=== PATIENT | female | born 1940 | race Caucasian/White ===

== ENCOUNTER 2017-08-19 14:21 | Outpatient (CLI) | payer MEDICARE, OTHER | END 2017-08-19 14:22 | disposition home or self-care (01) | LOC: BICULT 14:21 | PROVIDERS: ATTEND Internal Medicine | DX: I66.02 Occlusion and stenosis of left middle cerebral artery (principal) | CPT/HCPCS: 93880 ==

== ENCOUNTER 2018-03-21 13:00 | Outpatient (CLI) | payer MEDICARE, OTHER ==
--- NOTE | 2018-03-21 15:03 | ULT ---
CAROTID ARTERIAL DOPPLER ULTRASOUND: Date: 03-21-18 Comparison: 08-19-17 History: Occlusion of left MCA. Technique: Multiplanar grayscale sonographic imaging arterial structures of the neck obtained bilater ally with color flow and spectral analysis. FINDINGS: There is prominent calcified plaque involving the distal right CCA and proximal right ICA. Antegrade blood flow and normal arterial waveforms are noted within the carotid and vertebral system on the rig ht. There is essentric plaque within the distal left CCA and there is calcified plaque within the proxima l left ICA. Retrograde blood flow is noted within the vertebral artery on the left. Left carotid and vertebral system appears patent. VESSEL PSV (cm/sec) Right CCA 133 Right ICA 160 Right ECA 90 Left CCA 93 Left ICA 265 Left ECA 264 ICA/CCA ratio is 1.4 on the right and 2.9 on the left. IMPRESSION: 1. Abnormally elevated velocities are noted within the internal carotid arteries bilaterally, left gr eater than right, suggesting hemodynamically significant stenosis, up to 69% on the right and greater than 70% on the left. CT angiogram and/or MR angiogram could better assess these findings. In additi on, retrograde blood flow is seen within the left vertebral artery suggesting subclavian steal. This could also be better assessed via CT angiogram or MR angiogram. Code T POS: [facility]
--- NOTE | 2018-03-21 15:06 | RAD ---
FRONTAL AND LATERAL IMAGING CHEST: Date: 03-21-18 Comparison: None. 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 FINDINGS: There is atherosclerotic calcification of the aortic arch. The aortic arch is prominent/tortuous and there may be aneurysm dilatation of the iliac arch on the lateral examination. No pneumothorax, pleural fluid, focal consolidation or alveolar edema. IMPRESSION: Contour abnormality involving the aortic arch on the lateral view may signify an underlying aneurysm of the aortic arch. Recommend further evaluation via CT angiogram. Code T POS: [facility]
== END 2018-03-21 13:01 | disposition home or self-care (01) ==
LOC: SCSULT 13:00
PROVIDERS: ATTEND Internal Medicine
DX: I66.02 Occlusion and stenosis of left middle cerebral artery (principal); I65.29 Occlusion and stenosis of unspecified carotid artery; I77.9 Disorder of arteries and arterioles, unspecified
CPT/HCPCS: 71046; 93880

== ENCOUNTER 2018-03-29 11:56 | Outpatient (CLI) | payer MEDICARE, OTHER ==
[2018-03-29 13:05] LABS: Bilirubin Negative (Negative); Blood, Urine Negative (Negative); Clarity Clear (Clear); Glucose, Urine (Dipstick) Negative (Negative); Leukocyte Negative (Negative); Nitrite Negative (Negative); Protein, Urine (Dipstick) Negative (Neg-Trace); Urobilinogen 0.2 mg/dL (0.2-1.0)
[2018-03-29 13:37] LABS: Estimated GFR-MDRD - POC Greater than 90
[2018-03-29 14:00] LABS: #Basophils 0.1 thou/uL (0.0-0.2); #Eosinphils 0.2 thou/uL (0.0-0.7); #Lymphocytes 2.3 thou/uL (1.20-3.40); #Monocytes 0.8 thou/uL (0.11-0.59); #Neutrophils 4.5 thou/uL (1.40-6.50); %Basophils 1.5 % (0.0-1.0); %Eosinophils 2.4 % (0.0-10.0); %Neutrophils 57.1 % (42.0-75.0); Elliptocytes SLIGHT = 2-5 cells (100X) (0-1/hpf); Hemoglobin 6.1 g/dL (12.0-16.0); Hypochromia MODERATE=16-30 cells (100X) (0-5/hpf); MDiff Complete? YES; Mean Corpuscular HGB CONC 28.9 g/dL (32.0-36.0); Mean Corpuscular Hemoglobin 18.2 pg (27.0-31.0); Mean Corpuscular Volume 62.9 fL (78.0-98.0); Mean Platelet Volume 6.4 fL (7.4-10.4); Microcytosis SLIGHT = 6-15 cells (100X) (0-5/hpf); Platelet Count 560 thou/uL (130-400); Platelet Morphology Comment Appears Increased; RBC Distribution Width 16.4 % (11.5-14.5); Red Blood Cell (RBC) Count 3.36 mill/uL (4.20-5.40); Reflex for Review?? YES; White Blood Cell (WBC) Count 7.8 thou/uL (4.8-10.8)
[2018-03-29 14:25] LABS: ALT (SGPT) 8 U/L (8-55); AST (SGOT) 12 U/L (5-34); Albumin 4.4 g/dL (3.4-4.8); Alkaline Phosphatase 88 U/L (40-150); Anion Gap 16 mmol/L (10-20); BUN (Urea Nitrogen) 10 mg/dL (9.8-20.1); Bilirubin, Total 0.5 mg/dL (0.2-1.2); Calc. Creatinine Clearance 0 mL/min (70-130); Carbon Dioxide 27 mmol/L (23-31); Cardiac Risk 2.5 (Less than 4.5); Chloride 97 mmol/L (98-107); Cholesterol 133 mg/dl (< 200 Desired); Estimated GFR-MDRD 80; Globulin 3.5 g/dL (2.4-3.5); Glucose 105 mg/dL (83-110); HDL Cholesterol 53 mg/dL (>60 Neg Risk); LDL Cholesterol, Calculated 66 mg/dL; Potassium 3.5 mmol/L (3.5-5.1); Protein, Total 7.9 g/dL (6.0-8.3); Sodium 136 mmol/L (136-145); Triglycerides 69 mg/dL (Less than 150)
--- NOTE | 2018-03-29 15:18 | CT ---
CT ANGIOGRAM NECK WITH CONTRAST: Date: 03/29/18 HISTORY: Abnormal ultrasound. COMPARISON: Ultrasound dated 03/21/18. TECHNIQUE: CT angiogram of the neck was performed after the intravenous administration of contrast. 3D rendering was provided. FINDINGS: There is a small focal outpouching along the posterior margin of the transverse aorta. Transverse aor ta measures up to 3.1 cm. Moderate emphysematous changes lung apices. Exam limited due to motion. There is high grade possibly complete stenosis of left common carotid artery for a length of approximately 1.0 cm. This occurs at the level of C6. Per NASCET criteria, there is no hemodynamically significant stenosis left internal carotid artery. Right common carotid artery is patent. Per NASCET criteria, there is no hemodynamically significant s tenosis of the right internal carotid artery. Both vertebral arteries are patent and are codominant. IMPRESSION: Nondiagnostic exam of the carotid arteries with motion artifact causing the appearance of a near comp lete high grade stensosis left common carotid artery occlusion, axial image 72, sagittal image 53, at the level of C6 for a length of 1.0 cm. Repeat exam without motion recommended. This stenosis is not seen in the neck portion of the chest CTA exam. POS: [facility]
--- NOTE | 2018-03-29 15:19 | CT ---
CT AORTOGRAM CHEST WITH CONTRAST: INDICATIONS: Abnormal ultrasound. COMPARISON: Ultrasound exam of 03/21/2018 showed evidence of bilateral internal carotid artery stenosis and sugge stion of retrograde flow in the left vertebral artery. TECHNIQUE: Multiple axial tomograms obtained through the chest following thoracic aortogram protocol with multip lanar reconstruction and 3D post process. FINDINGS: Atherosclerotic changes are seen involving the thoracic aorta. Mild aneurysmal dilatation of the asc ending aorta with diameter measured at 3.8 cm. There is aneurysmal dilatation of the aortic arch, be st appreciated on sagittal and coronal images with a focal area of dilatation measuring up to 4.2 cm in diameter. There is diffuse fusiform dilatation of the descending thoracic aorta. Diameter is mos t pronounced in the lower descending thoracic aorta, with diameter measured at 4.8 cm. There is marycruz pheral thrombus at this location. There is no evidence of dissection. No significant stenosis at the origin of the innominate artery. Calcified plaque is seen at the origin of the common carotid artery, resulting in moderate stenosis, approaching 50% diameter. Prominent plaque is seen at the origin of the left subclavian, producing high-grade stenosis, which w ould explain the appearance of retrograde flow in the left vertebral noted on ultrasound examination. The left subclavian artery is opacified and appears otherwise patent. The pulmonary arteries are suboptimally opacified; however, there is no evidence or proximal pulmonar y embolus. Prominent calcified lymph node in the left hilum. The lung capps are clear. No infiltrate. Soft tissues show bilateral breast prostheses. There is fluid density surrounding the left breast pr osthesis. This may indicate a confined leak of a saline implant. IMPRESSION: 1. Atherosclerotic changes and aneurysmal dilatation of the thoracic aorta, as described above. Ane urysmal dilatation most pronounced in the lower descending thoracic aorta, as noted above. 2. Prominent calcified plaque with high-grade stenosis at the origin of the left subclavian artery, as described above. POS: [facility]
[2018-03-29 17:22] LABS: Folate (Folic Acid) 10.4 ng/mL (7.0-31.4)
== END 2018-03-29 11:57 | disposition home or self-care (01) ==
LOC: SCSCT 11:56
PROVIDERS: ATTEND Internal Medicine
DX: R93.89 Abnormal findings on diagnostic imaging of other specified body structures (principal); M79.605 Pain in left leg; R20.2 Paresthesia of skin; I10 Essential (primary) hypertension; I77.810 Thoracic aortic ectasia; I70.8 Atherosclerosis of other arteries
CPT/HCPCS: 36415; 70498; 71275; 80053; 80061; 81003; 82607; 82746; 84443; 85025; 85060

== ENCOUNTER 2018-11-02 09:02 | Outpatient (CLI) | payer MEDICARE, OTHER ==
--- NOTE | 2018-11-02 10:21 | BD ---
DEXA BONE DENSITY STUDY: Date: 11/02/18 HISTORY: Age-related osteoporosis without current pathologic fracture. COMPARISON: DEXA scan from 2017. FINDINGS: Lumbar Spine: BMD (g/cm2) L1 0.905 T-Score: -0.8 Z-Score: 1.5 L2 0.966 T-Score: -0.6 Z-Score: 2.0 L3 1.011 T-Score: -0.7 Z-Score: 2.0 L4 1.043 T-Score: -0.2 Z-Score: 2.6 L1-L4 0.981 T-Score: -0.6 Z-Score: 2.0 Change from the comparison exam is +3.2%, statistically significant. Left Femoral Neck: 0.646 T-Score: -1.8 Z-Score: 0.4 Total Femur: 0.760 T-Score: -1.5 Z-Score: 0.5 Change from the comparison exam is +1.6%, not statistically significant. WHO CLASSIFICATION: Osteopenia. 10 YEAR FRACTURE RISK: Major osteoporotic fracture: 13% Hip fracture: 5.2% IMPRESSION: Osteopenia with elevated fracture risk as above. POS: [facility]
== END 2018-11-02 09:03 | disposition home or self-care (01) ==
LOC: BICMAMMO 09:02
PROVIDERS: ATTEND Internal Medicine
DX: M81.0 Age-related osteoporosis without current pathological fracture (principal); M85.89 Other specified disorders of bone density and structure, multiple sites
CPT/HCPCS: 77080

== ENCOUNTER 2019-04-06 10:40 | Outpatient (CLI) | payer MEDICARE, OTHER ==
--- NOTE | 2019-04-06 13:25 | CT ---
CT ANGIOGRAM THORAX WITH IV CONTRAST AND 3-D RECONSTRUCTIONS CLINICAL INDICATION: Ascending thoracic aortic aneurysm. Follow-up evaluation. COMPARISON: 03/29/2018 FINDINGS: Pulmonary arteries: No filling defects are seen in the pulmonary arteries to suggest a pulmonary embo merritt. Aorta: Vascular calcifications are seen in the thoracic aorta. Atherosclerotic irregularity of the th oracic aorta is present. There is evidence of a descending thoracic aortic aneurysm which measures 4.7 cm x 4.6 cm with prior measurement of 4.5 cm x 4.4 cm. The ascending thoracic aorta measures 4 cm in greatest dimension. There is no evidence of an aortic dissection. Dense vascular calcifications are seen in the coronary arteries. There is also atherosclerotic irregularity with atherosclerotic pl aque and calcification seen in the proximal abdominal aorta. There is atherosclerotic irregularity involving the aortic arch with small outpouching along the undersurface of the aortic arch measuring 1.2 cm suggesting small saccular type aneurysm/penetration atheromatous ulceration. There is dense bulky calcified atherosclerotic plaque involving the origin and proximal left subclavian artery with at least moderate narrowing with possibly severe narrowing at the origin of the left subclavian artery. Lungs: There are linear and patchy densities seen in the right lower lobe likely attributable to atel ectasis. Mild atelectasis is also present in the region of the lingula and left lower lobe. No discrete pulmonary nodule, mass, or pleural effusion is identified. There are filling defects seen wi thin the right lower lobe bronchi which may be related to mucous plugging. Minimal peribronchial thickening is also seen in right lower lobe bronchioles. Mediastinum: No enlarged lymph nodes are seen by CT size criteria. Thyroid gland: Grossly normal in appearance. Osseous structures: There is mild bilateral glenohumeral osteoarthropathy. Prominent Schmorl's node i s seen in the superior endplate of the L2 vertebral body with slight height loss involving the L2 vertebral body suggesting a mild compression fracture of indeterminate age. This vertebral body was n ot imaged on prior exam. Chest wall: Bilateral breast prostheses are again noted. There is questionable intracapsular rupture left breast implant. Upper abdomen: There is a large calculus seen in the neck of the gallbladder also seen on prior CT ab domen in 2012. There is a peripherally enhancing lesion in the right hepatic lobe measuring 11 mm also seen on prior study in 2012 and not definitely changed in size. This may represent a small heman gioma or other vascular malformation. Splenic granulomata are visualized. Subcentimeter too small to characterize hypodense lesion is seen at the superior pole right kidney. There is prominent atherosclerotic plaque calcic lesions at the origins of the celiac and superior me senteric arteries with at least mild narrowing at the origin of the superior mesenteric artery. Mild to moderate narrowing is seen involving the origin of the left renal artery.. IMPRESSION: 1. Descending thoracic aortic aneurysm measuring 4.7 cm x 4.6 cm. This has enlarged compared to the p rior study in 2019; the aneurysm on that examination measured 4.5 cm x 4.4 cm. 2. Atherosclerotic irregularity with small outpouching of contrast seen along the inferior aspect of the aortic arch measuring 1.2 cm. This may represent a small saccular aneurysm/penetrating atheromatous-type ulceration. 3. Moderate to severe narrowing involving the origin proximal left subclavian artery due to dense ecc entric vascular calcification. 4. Diffuse vascular calcifications throughout the thoracic aorta and involving the proximal abdominal aorta as well as involving the coronary arteries. 5. Cholelithiasis with large gallbladder calculus in the neck of the gallbladder. 6. Small hemangioma versus other vascular malformation in the right hepatic lobe stable in size and a ppearance compared to a study in 2013.
[2019-04-06] MEDS ORDERED: Iopamidol-370 76% 500 ML 1 ML ONE (14:41)
== END 2019-04-06 10:41 | disposition home or self-care (01) ==
LOC: BICCT 10:40
PROVIDERS: ATTEND Internal Medicine
DX: I71.2 Thoracic aortic aneurysm, without rupture (principal); I25.10 Atherosclerotic heart disease of native coronary artery without angina pectoris; I70.0 Atherosclerosis of aorta; K80.20 Calculus of gallbladder without cholecystitis without obstruction; I77.1 Stricture of artery
CPT/HCPCS: 71275; Q9967

== ENCOUNTER 2019-12-02 13:21 | Emergency (ER) | payer MEDICARE, OTHER ==
[2019-12-02 14:40] LABS: #Basophils 0.1 thou/uL (0.0-0.2); #Eosinphils 0.1 thou/uL (0.0-0.7); #Lymphocytes 0.6 thou/uL (1.20-3.40); #Monocytes 1.1 thou/uL (0.11-0.59); #Neutrophils 12.4 thou/uL (1.40-6.50); %Basophils 0.4 % (0.0-1.0); %Eosinophils 0.5 % (0.0-10.0); %Lymphocytes 4.4 % (21.0-51.0); %Monocytes 7.7 % (0.0-10.0); %Neutrophils 87.1 % (42.0-75.0); Hemoglobin 12.3 g/dL (12.0-16.0); Mean Corpuscular Hemoglobin 31.1 pg (27.0-31.0); Mean Corpuscular Volume 91.5 fL (78.0-98.0); Mean Platelet Volume 6.8 fL (7.4-10.4); Platelet Count 402 thou/uL (130-400); RBC Distribution Width 13.9 % (11.5-14.5); Red Blood Cell (RBC) Count 3.96 mill/uL (4.20-5.40); White Blood Cell (WBC) Count 14.2 thou/uL (4.8-10.8)
[2019-12-02 14:55] LABS: ALT (SGPT) 9 U/L (8-55); AST (SGOT) 17 U/L (5-34); Albumin 3.9 g/dL (3.4-4.8); Alkaline Phosphatase 69 U/L (40-110); Anion Gap 13 mmol/L (10-20); BUN (Urea Nitrogen) 12 mg/dL (9.8-20.1); Bilirubin, Total 0.4 mg/dL (0.2-1.2); Calc. Creatinine Clearance 0 mL/min (70-130); Calcium 9.5 mg/dL (7.8-10.44); Carbon Dioxide 25 mmol/L (23-31); Chloride 101 mmol/L (98-107); Estimated GFR-MDRD 82; Globulin 3.1 g/dL (2.4-3.5); Glucose 92 mg/dL (83-110); Potassium 4.1 mmol/L (3.5-5.1); Sodium 135 mmol/L (136-145)
== END 2019-12-02 15:26 | disposition home or self-care (01) ==
LOC: ERS 13:21
DX: K59.00 Constipation, unspecified (principal); I10 Essential (primary) hypertension; F17.210 Nicotine dependence, cigarettes, uncomplicated; Z79.82 Long term (current) use of aspirin; Z79.899 Other long term (current) drug therapy
CPT/HCPCS: 80053; 85025; 86850; 86900; 86901; 99284

== ENCOUNTER 2019-12-29 13:30 | Outpatient (CLI) | payer MEDICARE, OTHER ==
[2019-12-31 12:11] LABS: SARS-CoV-2 MS2 Positive; SARS-CoV-2 N Gene Negative; SARS-CoV-2 S Gene Negative; SARS-CoV-2 by NAA Not Detected (NotDetected); SARS-CoV-2 orf1ab Negative
== END 2019-12-29 13:31 | disposition home or self-care (01) ==
LOC: LABBT 13:30
PROVIDERS: ATTEND Radiology Radiation Oncology
DX: Z20.828 Contact with and (suspected) exposure to other viral communicable diseases (principal)
CPT/HCPCS: 87635; U0003

== ENCOUNTER 2019-12-30 15:06 | Inpatient (IN) | payer MEDICARE, OTHER ==
[2019-12-30] MEDS ORDERED: Iopamidol-370 76% 500 ML 1 ML ONE (15:47)
[2019-12-30 18:52] LABS: #Eosinphils 0.1 thou/uL (0.0-0.7); #Lymphocytes 0.7 thou/uL (1.20-3.40); #Monocytes 0.8 thou/uL (0.11-0.59); #Neutrophils 4.9 thou/uL (1.40-6.50); %Basophils 0.2 % (0.0-1.0); %Eosinophils 2.2 % (0.0-10.0); %Monocytes 12.6 % (0.0-10.0); Mean Corpuscular HGB CONC 32.8 g/dL (32.0-36.0); Mean Corpuscular Hemoglobin 30.1 pg (27.0-31.0); Mean Corpuscular Volume 91.5 fL (78.0-98.0); Mean Platelet Volume 6.6 fL (7.4-10.4); Platelet Count 395 thou/uL (130-400); RBC Distribution Width 13.1 % (11.5-14.5); Red Blood Cell (RBC) Count 3.99 mill/uL (4.20-5.40); White Blood Cell (WBC) Count 6.6 thou/uL (4.8-10.8)
[2019-12-30 19:15] LABS: ALT (SGPT) 7 U/L (8-55); AST (SGOT) 15 U/L (5-34); Albumin 4.1 g/dL (3.4-4.8); Alkaline Phosphatase 72 U/L (40-110); Anion Gap 19 mmol/L (10-20); BUN (Urea Nitrogen) 13 mg/dL (9.8-20.1); Bilirubin, Total 0.4 mg/dL (0.2-1.2); Calc. Creatinine Clearance 0 mL/min (70-130); Calcium 9.9 mg/dL (7.8-10.44); Carbon Dioxide 22 mmol/L (23-31); Chloride 102 mmol/L (98-107); Estimated GFR-MDRD 77; Globulin 3.3 g/dL (2.4-3.5); Glucose 91 mg/dL (83-110); Potassium 3.5 mmol/L (3.5-5.1); Protein, Total 7.4 g/dL (6.0-8.3); Sodium 139 mmol/L (136-145)
--- NOTE | 2019-12-30 19:48 | CT ---
CT Abdomen Pelvis W Con: 12/30/2019 7:20 PM CLINICAL INFORMATION: Constipation and abdominal COMPARISON: 06/09/2012 TECHNIQUE: Multiple contiguous axial images were obtained and a CT of the abdomen and pelvis with IV contrast. C oronal and sagittal reformats were performed. FINDINGS: Lower Chest: Right basilar atelectasis Abdomen: Liver: Scattered calcified granulomas. There is an area of hyperenhancement in the right lobe of the liver which is stable and may represent a portal venous shunt. Bile Ducts: Mild central intrahepatic biliary dilatation. Gallbladder: Stable large calcified gallstone. Pancreas: within normal limits. Spleen: Scattered calcified granulomas. Adrenals: within normal limits. Kidneys: Hypodensities bilaterally measuring up to 1.2 cm in size likely represent cysts. Calcificati ons in both kidneys are likely vascular calcifications. Pelvis: Reproductive Organs: A 2.2 cm hypodensity in the right pelvis may represent the patient's right ovary or an ovarian cyst. Ureters: There is enlargement of the proximal bilateral ureters Bladder: within normal limits. Peritoneum: No ascites or free air, no fluid collection. Bowel: Normal caliber. Moderate stool is seen in the colon with a slight amount of distention of the rectal vault. Mesentery and Retroperitoneum: No enlarged mesenteric or retroperitoneal lymph nodes. Vessels: Diffuse atherosclerotic calcifications. There is aneurysmal dilatation of the descending tho racic aorta which measures 4.8 cm in greatest dimension. The abdominal aorta is tortuous with aneurysmal dilatation measuring 3.8 cm in greatest dimension. Extensive atherosclerotic calcification s are seen in the proximal aspect of both common iliac arteries. Abdominal Wall: within normal limits. Bones: Degenerative changes in the spine. There is wedge compression deformity of the L1 vertebral sonya dy which is likely chronic. IMPRESSION: 1. Constipation 2. Cholelithiasis 3. Bilateral renal cysts 4. Stable bilateral proximal ureteral enlargement. 5. Aortic aneurysm involving the thoracic and abdominal aorta as above
[2019-12-30 20:42] LABS: Bilirubin Negative (Negative); Blood, Urine Negative (Negative); Clarity Clear (Clear); Glucose, Urine (Dipstick) Normal (Negative); Ketone, Urine Trace mg/dL (Negative); Leukocyte Negative Leu/uL (Negative); Nitrite Negative (Negative); Protein, Urine (Dipstick) 20 mg/dL (Neg-Trace); Specific Gravity, Urine 1.028 (1.002-1.036); Urobilinogen Normal mg/dL (Less than 2)
[2019-12-30] MEDS ORDERED: Nicotine 14 MG PATCH ONE (21:11)
[2019-12-30] MEDS ORDERED: Ondansetron PF 4 MG/2 ML Vial IVP PRN (21:53)
[2019-12-30] MEDS ORDERED: Bisacodyl 10 MG SUPP PR PRN (21:53)
[2019-12-30] MEDS ORDERED: Acetaminophen 325 MG TAB PO PRN (21:53)
--- NOTE | 2019-12-30 22:07 | PDOC.BPN ---
- Brief Progress Note Encounter Date: 12/30/19 [id number] HP
--- NOTE | 2019-12-30 22:48 | HP ---
CHIEF COMPLAINT: Decreased oral intake, dehydration, and constipation. HISTORY OF PRESENT ILLNESS: Ms. Bill is a 79-year-old female with past medical history of throat cancer with recent radiation therapy, peripheral vascular disease with 2 blockages in bilateral legs, subclavian artery stenosis, stroke, aortic aneurysm, among others, presents to the emergency room with constipation, weakness, dehydration. The patient reported that she had not had a bowel movement, but today she tried manual disimpaction on herself and was able to remove stool. She reports that she has not eaten since yesterday due to feeling full. She denies any nausea, vomiting, diarrhea, urinary symptoms, fever, or chills at this time. The patient reports has a history of throat cancer, which is currently receiving radiation therapy, last treatment was on Wednesday. Workup in the emergency room including imaging studies, the patient was found to have cirrhotic, abdominal aortic aneurysm 4.8 cm in greatest diameter. Family is aware of this finding, also the patient was found to have gallstones. The patient has some right upper quadrant tenderness on exam. The patient is being admitted to hospital for further management, started on IV fluids. ED physician consulted GI. The patient is being admitted to the hospital for further management. PAST MEDICAL HISTORY: As mentioned above in history of present illness. PAST SURGICAL HISTORY: 1. Breast cancer surgery, bilateral. 2. Partial hysterectomy. 3. Appendectomy. 4. Tonsillectomy. SOCIAL HISTORY: The patient drinks less than 5 drinks a day, denies drug use, currently uses tobacco, smokes cigarettes. FAMILY HISTORY: Reviewed, noncontributory. ALLERGIES: ALLERGIC TO PENICILLIN. HOME MEDICATIONS: Please see home medication reconciliation form for updated medications. REVIEW OF SYSTEMS: Review of 14 systems negative except what is mentioned in history of present illness. PHYSICAL EXAMINATION: GENERAL: The patient is awake, alert, in mild distress. VITAL SIGNS: Blood pressure 111/61, pulse 73, respiratory rate is 18, temperature 98.5, oxygen saturation is 96% on room air. HEAD AND NECK: Normocephalic. Neck is supple. The patient is having a hoarse voice from recent radiation. CHEST: Fair bilateral air entry. HEART: S1, S2. Regular. ABDOMEN: Soft with right upper quadrant tenderness. Bowel sounds present. NEUROLOGIC: Awake, alert, oriented x3. No focal deficits. PSYCH: Unable to assess. EXTREMITIES: No clubbing or cyanosis. LABORATORY DATA: WBC 6.6, hemoglobin 12, platelets 395. Sodium 139, potassium 3.5, BUN is 13, creatinine is 0.7, AST is 15, ALT is 7. Urinalysis is unremarkable. CT of abdomen and pelvis shows signs of constipation, cholelithiasis, aortic aneurysm involving thoracic and abdominal aorta, which measures 4.8 cm in greatest diameter. ASSESSMENT AND PLAN: 1. Dehydration. 2. Poor oral intake secondary to recent radiation therapy. 3. Gallstones ? symptomatic. 4. Abdominal aortic aneurysm 4.8 cm in greatest diameter. Family is aware of this finding. 5. Throat cancer. We recently treated with radiation. PLAN: 1. Admit. 2. IV fluid hydration. 3. GI was consulted by ED for evaluation regarding CT findings. 4. Reconcile home medications. 5. DVT prophylaxis as appropriate. 6. Expected length of stay, 2 midnights. Job ID: [id number]
[2019-12-30] MEDS: Sodium Chloride 0.9% 1,000 ML IV SCH (23:06)
[2019-12-31 01:34] VITALS: BMI 17.6
[2019-12-31 05:39] LABS: #Eosinphils 0.1 thou/uL (0.0-0.7); #Lymphocytes 0.4 thou/uL (1.20-3.40); #Monocytes 0.8 thou/uL (0.11-0.59); #Neutrophils 4.2 thou/uL (1.40-6.50); %Basophils 0.8 % (0.0-1.0); %Eosinophils 2.5 % (0.0-10.0); %Lymphocytes 7.4 % (21.0-51.0); %Monocytes 14.5 % (0.0-10.0); %Neutrophils 74.7 % (42.0-75.0); Hemoglobin 10.8 g/dL (12.0-16.0); Mean Corpuscular Volume 90.7 fL (78.0-98.0); Mean Platelet Volume 6.6 fL (7.4-10.4); Platelet Count 398 thou/uL (130-400); RBC Distribution Width 12.9 % (11.5-14.5); Red Blood Cell (RBC) Count 3.73 mill/uL (4.20-5.40); White Blood Cell (WBC) Count 5.7 thou/uL (4.8-10.8)
[2019-12-31 06:05] LABS: Carbon Dioxide 23 mmol/L (23-31); Chloride 103 mmol/L (98-107); Sodium 139 mmol/L (136-145)
[2019-12-31 06:06] LABS: ALT (SGPT) Less than 7 U/L (8-55); AST (SGOT) 13 U/L (5-34); Albumin 3.5 g/dL (3.4-4.8); Alkaline Phosphatase 61 U/L (40-110); Anion Gap 16 mmol/L (10-20); BUN (Urea Nitrogen) 8 mg/dL (9.8-20.1); Bilirubin, Total 0.4 mg/dL (0.2-1.2); Calc. Creatinine Clearance 62 mL/min (70-130); Calcium 8.5 mg/dL (7.8-10.44); Estimated GFR-MDRD Greater than 90; Glucose 76 mg/dL (83-110); Protein, Total 6.5 g/dL (6.0-8.3)
[2019-12-31 06:10] LABS: Potassium 2.6 mmol/L (3.5-5.1)
[2019-12-31] MEDS ORDERED: Potassium Chloride 20 MEQ TAB PO SCH (06:30)
[2019-12-31] MEDS ORDERED: Potassium Chloride 40 MEQ in Sodium Chloride 0.9% 250 ML 250 ML IVPB SCH (07:00)
[2019-12-31] MEDS: Sodium Chloride 0.9% 1,000 ML IV SCH (08:52)
[2019-12-31] MEDS: Enoxaparin Sodium 30 MG/0.3 ML SYRINGE SC SCH (08:53)
[2019-12-31] MEDS: Famotidine/PF 20 mg/2ml Vial SLOW IVP SCH ×2 (08:54→20:42)
[2019-12-31 10:28] LABS: SARS-CoV-2 MS2 Positive; SARS-CoV-2 N Gene Negative; SARS-CoV-2 S Gene Negative; SARS-CoV-2 by NAA Not Detected (NotDetected); SARS-CoV-2 orf1ab Negative
[2019-12-31] MEDS: Ketorolac Tromethamine 30 MG/ML VIAL IVP SCH ×2 (11:51→17:20)
[2019-12-31] MEDS ORDERED: Docusate 100 MG CAP PO PRN (17:28)
--- NOTE | 2019-12-31 17:43 | PDOC.HOSPP ---
- Subjective Encounter Date: 12/31/19 Encounter Time: 17:20 Subjective: f/u for dysphagia/dehydration/throat carcinoma currently receiving XRT as outpt. + Constipation but had multiple BM's today. - Objective Vital Signs & Weight: Vital Signs (12 hours) Temp Pulse Resp BP Pulse Ox 12/31/19 15:20 98.1 F 62 18 102/87 97 12/31/19 11:16 98.2 F 64 16 114/72 97 12/31/19 08:00 97 12/31/19 07:18 98 F 66 16 112/75 97 Weight Weight 110 lb 3.698 oz Result Diagrams: 12/31/19 05:22 12/31/19 05:22 Additional Labs: Laboratory Tests 12/30/19 12/30/19 18:39 21:41 Potassium 3.5 SARS-CoV-2 (PCR) Not Detected Radiology Reviewed by me: Yes (CT abd/pel - + constipation, AAA stable, chronic changes) Hospitalist ROS - Medication Medications: Active Medications Generic Name Dose Route Start Last Admin Trade Name Freq PRN Reason Stop Dose Admin Acetaminophen 650 mg 12/30/19 21:53 12/31/19 10:37 Acetaminophen 325 Mg Tab PO 650 mg Q4H PRN Administration Headache/Fever/Mild Pain (1-3) Bisacodyl 10 mg 12/30/19 21:53 12/31/19 09:05 Bisacodyl 10 Mg Supp LA 10 mg DAILYPRN PRN Administration Constipation Enoxaparin Sodium 30 mg 12/31/19 09:00 12/31/19 08:53 Enoxaparin Sodium 30 Mg/0.3 Ml Syringe SC 30 mg 0900 BRITNEY Administration Famotidine 20 mg 12/31/19 09:00 12/31/19 08:54 Famotidine/Pf 20 Mg/2ml Vial SLOW IVP 20 mg Q12HR BRITNEY Administration Ketorolac Tromethamine 30 mg 12/31/19 11:00 12/31/19 11:51 Ketorolac Tromethamine 30 Mg/Ml Vial IVP 01/05/20 13:00 30 mg NOW BRITNEY Administration Ketorolac Tromethamine 30 mg 12/31/19 18:00 12/31/19 17:20 Ketorolac Tromethamine 30 Mg/Ml Vial IVP 01/05/20 12:01 Not Given Q6HR BRITNEY - Exam General Appearance: NAD, awake alert Eye: PERRL, anicteric sclera ENT: normocephalic atraumatic, no oropharyngeal lesions Neck: supple, symmetric, no JVD, no thyromegaly Neck - other findings: radiation-induced skin changes Heart: RRR, no gallops, no rubs, normal peripheral pulses Heart - other findings: S1, S2 Respiratory: CTAB, no wheezes, no rales, normal chest expansion, rhonchi Gastrointestinal: soft, non-tender, non-distended, normal bowel sounds, no palpable masses Extremities: no cyanosis, no clubbing, no edema Skin: normal turgor, no lesions Neurological: cranial nerve grossly intact, no new deficit Musculoskeletal: normal tone, generalized weakness Psychiatric: normal affect, A&O x 3 Hosp A/P (1) Dysphagia Code(s): R13.10 - DYSPHAGIA, UNSPECIFIED Status: Acute Qualifiers: Dysphagia type: oropharyngeal phase Qualified Code(s): R13.12 - Dysphagia, oropharyngeal phase Plan: Suspect due to radiation-induced changes of the esophagus, GRAVE [employer]ER consult pending, soft mech diet (2) Dehydration Code(s): E86.0 - DEHYDRATION Status: Acute Plan: Continue IVF's, encourage increased free-H2O intake (3) Primary carcinoma of throat Code(s): C14.0 - MALIGNANT NEOPLASM OF PHARYNX, UNSPECIFIED Status: Acute Plan: Currently undergoing XRT tx as outpt (4) Constipation Code(s): K59.00 - CONSTIPATION, UNSPECIFIED Status: Acute Qualifiers: Constipation type: slow transit constipation Qualified Code(s): K59.01 - Slow transit constipation Plan: Likely contribution of dehydration, + BM's today with laxatives (5) Hypokalemia Code(s): E87.6 - HYPOKALEMIA Status: Acute Plan: KCL supplementation, serial monitoring - Plan plan discussed w/ family, social service director, speech therapy, out of bed/ambulate, DVT proph w/SCDs Stable currently GRAVE CLEANER consult pending Start Mech soft diet Ensure BID Continue bowel regimen KCL supplementation AM lab: BMP
[2019-12-31] MEDS: NS 0.9% w/ 40 MEQ KCL 1,000 ML IV SCH (18:12)
[2020-01-01] MEDS: Ketorolac Tromethamine 30 MG/ML VIAL IVP SCH ×6 (00:02→23:53)
[2020-01-01 06:34] LABS: Anion Gap 16 mmol/L (10-20); BUN (Urea Nitrogen) 7 mg/dL (9.8-20.1); Calc. Creatinine Clearance 53 mL/min (70-130); Calcium 8.9 mg/dL (7.8-10.44); Carbon Dioxide 21 mmol/L (23-31); Chloride 108 mmol/L (98-107); Estimated GFR-MDRD 83; Glucose 87 mg/dL (83-110); Sodium 141 mmol/L (136-145)
[2020-01-01] MEDS: NS 0.9% w/ 40 MEQ KCL 1,000 ML IV SCH (06:42)
[2020-01-01] MEDS ORDERED: Sodium Chloride 0.9% 500 ML IV SCH (08:15)
[2020-01-01] MEDS: Losartan 25 MG TAB PO SCH (09:05)
[2020-01-01] MEDS: Amlodipine 5 MG TAB PO SCH (09:06)
[2020-01-01] MEDS: Enoxaparin Sodium 30 MG/0.3 ML SYRINGE SC SCH (09:09)
[2020-01-01] MEDS: Famotidine/PF 20 mg/2ml Vial SLOW IVP SCH ×2 (09:09→20:35)
[2020-01-01] MEDS: Nicotine 14 MG PATCH TOP SCH (11:18)
--- NOTE | 2020-01-01 12:08 | RAD ---
XR Ba Swallow W/Speech Therap History: Dysphasia, unspecified R 13.10. Feeding difficulties R 63.3. Comparison: None. Findings: Multiple consistencies contrast was given to the patient via the speech pathologist. Early spillage of contrast along with deep penetration and aspiration with multiple contrast consistencies. Impression: Fluoroscopy for the speech pathologist. Please see their report for details of the exam. Fluoroscopy time: 2.3 minutes
--- NOTE | 2020-01-01 15:02 | PQF ---
CLINICAL DOCUMENTATION CLARIFICATION FORM: Dear Dr. Walker Date: 01/01/20 Please exercise your independent, professional judgment in responding to the clarification form. Clinical indicators are provided on the bottom of this form for your review. Please check appropriate box(es): [ x ] Protein Calorie Malnutrition: [ x ] Mild [ ] Moderate [ ] Severe [ ] Other Malnutrition (please specify) [ ] Underweight without malnutrition [ ] Cachexia [ ] Other diagnosis [ ] Unable to determine In addition, please specify: Present on Admission (POA): [ ] Yes [ ] No [ ] Unable to determine For continuity of documentation, please document condition throughout progress notes and discharge summary. Thank You. To be completed by CDI/Coding staff for physician review: CLINICAL INDICATORS - SIGNS / SYMPTOMS / LABS / RESULTS AND LOCATION IN MR DIETARY ASSESSMENT 12/31: "MODERATE ORBITAL AND BUCCAL FAT PAD WASTING, MODERATE TEMPORALIS AND INTEROSSEOUS MUSCLE WASTING , 6.6% WEIGHT LOSS X 6 WEEKS, ESTIMATED INTAKE <50% OF NEEDS X 6 WEEKS SUGGESTIVE OF SEVERE MALNUTRITION IN THE CONTEXT OF ACUTE ILLNESS." BMI 17.7 RISK FACTORS / RESULTS AND LOCATION IN MR DYSPHAGIA WITH THROAT CANCER AND RADIATION (PN 12/30- [facility]) TREATMENT / RESULTS AND LOCATION IN MR DIETARY CONSULT 12/31 NUTRITIONAL SUPPLEMENTS BARIUM SWALLOW 12/31 Moderate Malnutrition (in acute illness) Energy Intake: <75% of estimated energy requirement for > 7 days Weight Loss: 1-2%/1 week; 5%/ 1 month; 7.5%/3 months Other: mild body fat loss; mild muscle mass loss; mild fluid accumulation; Severe Malnutrition (in acute illness) Energy Intake: = 50% of estimated energy requirement for = 5 days Weight Loss: >2%/1 week; >5%/1 month; >7.5%/3 months Other: moderate body fat loss; moderate muscle mass loss; moderate- severe fluid accumulation; measurably reduced radiology equipment servicer strength Moderate Malnutrition (in chronic illness) Energy Intake: <75% of estimated energy requirement for =1 month Weight Loss: 5%/1 month; 7.5%/3 months; 10%/6 months; 20%/1 year Other: mild body fat loss; mild muscle mass loss; mild fluid accumulation Severe Malnutrition (in chronic illness) Energy Intake: =75% of estimated energy requirement for =1 month Weight Loss: >5%/1 month; >7.5%/3 months; >10%/6 months; >20%/1 year Other: severe body fat loss; severe muscle mass loss; severe fluid accumulation; measurably reduced radiology equipment servicer strength CDS Signature: Odalys Ladd RN Phone #: [phone] Date: 01/01/20 This is a permanent part of the Medical Record [facility]
--- NOTE | 2020-01-01 19:46 | CON ---
DATE OF CONSULTATION: 01/01/2020 CHIEF COMPLAINT: Constipation and trouble swallowing and gallstones. HISTORY OF PRESENT ILLNESS: Ms. Bill is a 79-year-old woman with throat cancer who has been undergoing radiation therapy. She received her last dose of radiation last week. She was admitted on 12/30/2019, with dehydration and constipation. She had not been tolerating adequate amount of liquids by mouth. She became constipated and did receive suppositories and laxatives over the last couple of the days, and yesterday, she had multiple bowel movements that relieved the constipation. She was having rectal pain when she originally presented, but that has since resolved. She had a CT scan on 12/30/2019, when she was admitted, which incidentally noted gallstones. She denies any abdominal pain. No nausea or pain after eating. She has been receiving radiation treatments and has had trouble swallowing and underwent a modified barium swallow today. The fluoroscopy did show deep penetration and aspiration with contrast, however, with alterations of consistencies, the patient reports that the speech pathologist told her she could take small amounts by mouth at a time safely with adjustment of the diet and using a spoon. The modified barium swallow report by the speech pathologist is not yet available for review in the computer. 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 Breast cancer. PAST SURGICAL HISTORY: Breast surgery, hysterectomy, appendectomy, tonsillectomy. FAMILY HISTORY: Negative for GI malignancy. SOCIAL HISTORY: She has been a smoker. No drug use. Positive alcohol use. ALLERGIES: PENICILLIN, TETANUS, AND DIPHTHERIA TOXOIDS. REVIEW OF SYSTEMS: Negative x10 systems reviewed except as stated in history of present illness. PHYSICAL EXAMINATION: VITAL SIGNS: Temperature 97.8, pulse 55, blood pressure 189/68. GENERAL: She is in no acute distress. Alert and oriented x3. HEENT: Eyes have no scleral icterus. Oropharynx is clear without lesions. No cervical or supraclavicular lymphadenopathy. LUNGS: Clear to auscultation bilaterally. HEART: Regular rate and rhythm without murmur. ABDOMEN: Soft, nontender, and nondistended. Bowel sounds are present. EXTREMITIES: No lower extremity edema. NEUROLOGIC: Cranial nerves are grossly intact. LABORATORY DATA: White blood cell count 5.7; hemoglobin 10.8, down from 12 on 11/14; platelets 398. Creatinine 0.68. IMPRESSION: 1. Oropharyngeal dysphagia secondary to radiation for throat cancer. She underwent modified barium swallow by Speech Pathology today. The official report is not available. However, the patient reports that she was allowed to remain on an oral diet with adjustments to consistencies and using spoon to take liquids. 2. Constipation. Likely secondary to dehydration from decreased oral intake. She is encouraged to increase her water intake. MiraLAX can be added daily as well. 3. Cholelithiasis. This appears to be incidental and asymptomatic. RECOMMENDATIONS: 1. Daily osmotic laxatives with MiraLAX. She can take it twice daily if necessary. If she is unable to take this by mouth due to restrictions from her dysphagia standpoint, then she could take Senokot or continue with the magnesium pills with increased water intake. 2. If her oropharyngeal dysphagia worsens, then we can be available if needed for PEG tube placement. 3. I will sign off for now, please call if GI can be of assistance. Job ID: [id number]
[2020-01-02 05:35] LABS: #Eosinphils 0.3 thou/uL (0.0-0.7); #Lymphocytes 0.5 thou/uL (1.20-3.40); #Monocytes 0.8 thou/uL (0.11-0.59); #Neutrophils 4.3 thou/uL (1.40-6.50); %Basophils 0.4 % (0.0-1.0); %Eosinophils 4.6 % (0.0-10.0); %Lymphocytes 8.7 % (21.0-51.0); %Monocytes 13.6 % (0.0-10.0); %Neutrophils 72.7 % (42.0-75.0); Mean Corpuscular Hemoglobin 30.2 pg (27.0-31.0); Mean Corpuscular Volume 91.3 fL (78.0-98.0); Mean Platelet Volume 6.8 fL (7.4-10.4); Platelet Count 380 thou/uL (130-400); RBC Distribution Width 12.9 % (11.5-14.5); Red Blood Cell (RBC) Count 3.31 mill/uL (4.20-5.40); White Blood Cell (WBC) Count 5.9 thou/uL (4.8-10.8)
[2020-01-02 05:47] LABS: Anion Gap 14 mmol/L (10-20); BUN (Urea Nitrogen) 7 mg/dL (9.8-20.1); Calc. Creatinine Clearance 59 mL/min (70-130); Calcium 8.3 mg/dL (7.8-10.44); Carbon Dioxide 20 mmol/L (23-31); Chloride 107 mmol/L (98-107); Estimated GFR-MDRD Greater than 90; Glucose 91 mg/dL (83-110); Potassium 3.6 mmol/L (3.5-5.1); Sodium 137 mmol/L (136-145)
[2020-01-02] MEDS: Ketorolac Tromethamine 30 MG/ML VIAL IVP SCH ×5 (05:47→23:47)
[2020-01-02] MEDS: Amlodipine 5 MG TAB PO SCH (08:25)
[2020-01-02] MEDS: Enoxaparin Sodium 30 MG/0.3 ML SYRINGE SC SCH (08:26)
[2020-01-02] MEDS: Famotidine/PF 20 mg/2ml Vial SLOW IVP SCH ×2 (08:27→21:32)
[2020-01-02] MEDS: Losartan 25 MG TAB PO SCH (08:27)
[2020-01-02] MEDS: Nicotine 14 MG PATCH TOP SCH (11:31)
[2020-01-02] MEDS ORDERED: Polyethylene Glycol 3350 17 GM Packet PO SCH (12:30)
[2020-01-02] MEDS: Polyethylene Glycol 3350 17 GM Packet PO SCH (21:32)
[2020-01-03] MEDS: Ketorolac Tromethamine 30 MG/ML VIAL IVP SCH ×3 (05:20→11:56)
[2020-01-03] MEDS: Amlodipine 5 MG TAB PO SCH (08:43)
[2020-01-03] MEDS: Losartan 25 MG TAB PO SCH (08:43)
[2020-01-03] MEDS: Enoxaparin Sodium 30 MG/0.3 ML SYRINGE SC SCH (08:44)
[2020-01-03] MEDS: Polyethylene Glycol 3350 17 GM Packet PO SCH (08:44)
[2020-01-03] MEDS: Famotidine/PF 20 mg/2ml Vial SLOW IVP SCH (08:44)
[2020-01-03 11:49] VITALS: BP 146/61; TEMP 98.1
[2020-01-03] MEDS: Nicotine 14 MG PATCH TOP SCH (11:55)
== END 2020-01-03 13:04 | disposition home or self-care (01) | DRG 641 ==
LOC: ERS 15:06 → SJJU 20:34
PROVIDERS: ADMIT Internal Medicine; ATTEND Family Medicine
DX: E86.0 Dehydration (principal); E44.1 Mild protein-calorie malnutrition; Z68.1 Body mass index [BMI] 19.9 or less, adult; I73.9 Peripheral vascular disease, unspecified; I10 Essential (primary) hypertension; F17.210 Nicotine dependence, cigarettes, uncomplicated; R13.12 Dysphagia, oropharyngeal phase; C14.0 Malignant neoplasm of pharynx, unspecified; K80.80 Other cholelithiasis without obstruction; I71.4 Abdominal aortic aneurysm, without rupture; Z20.828 Contact with and (suspected) exposure to other viral communicable diseases; I71.2 Thoracic aortic aneurysm, without rupture; K59.01 Slow transit constipation; E87.6 Hypokalemia; Z86.73 Personal history of transient ischemic attack (TIA), and cerebral infarction without residual deficits; Z92.3 Personal history of irradiation; Z85.3 Personal history of malignant neoplasm of breast; Z90.49 Acquired absence of other specified parts of digestive tract; Z90.89 Acquired absence of other organs; Z90.711 Acquired absence of uterus with remaining cervical stump; Z98.890 Other specified postprocedural states; Z88.0 Allergy status to penicillin; Z88.7 Allergy status to serum and vaccine
CPT/HCPCS: 36415; 74177; 74230; 80048; 80053; 81003; 85025; 87635; J1650; J1885; J3480; J7050; Q9967; S0028; U0003

== ENCOUNTER 2020-02-13 11:08 | Outpatient (CLI) | payer MEDICARE, OTHER ==
--- NOTE | 2020-02-13 13:38 | RAD ---
RIGHT HIP: 02/13/20 Two views. HISTORY: Hip pain. Mild degenerative changes with mild spurring from the femoral head. Femoral head contour is preserved . There is mild medial joint narrowing. No fracture or acute abnormality. IMPRESSION: Mild degenerative change. POS: AGW
== END 2020-02-13 11:09 | disposition home or self-care (01) ==
LOC: BICRAD 11:08
PROVIDERS: ATTEND Specialist
DX: M25.551 Pain in right hip (principal); M16.11 Unilateral primary osteoarthritis, right hip